=== PATIENT | female | born 1930 | race Caucasian/White ===

== ENCOUNTER 2020-12-14 07:10 | Emergency (ER) | payer MEDICARE ==
[~2020-12-14] VITALS: Ht 147.3 cm; Wt 63.6 kg
[2020-12-14 07:27] VITALS: BP 180/97
--- NOTE | 2020-12-14 07:46 | ED.ADGEN ---
Past Medical History Past Medical History: Anemia, GERD, Hypertension Additional Past Medical Histor: neuropathy Past Surgical History: Other Additional Past Surgical Histo: knee surgery Smoking Status: Never Smoker Alcohol Use: None General Adult EDM: Chief Complaint: MECHANICAL FALL HPI: HPI: Patient is a 89 year old female coming in for head injury. Patient states she has a history of neuropathy from the waist down and was trying to get out of her recliner to get a drink when she says she slid down but did not fell forward and struck the side of a plastic trash can. Denies any loss of consciousness. Patient is anticoagulated on Xarelto. Has a scrape to the top of her nose and hematoma with abrasion to her right forehead. No other injuries. Patient states her tetanus is up-to-date and she otherwise has been feeling well. Review of Systems: Review of Systems: All other systems within normal limits except for as noted in the HPI Current Medications: Current Medications Medications (Trade) Dose Ordered Sig/Linda Start Time Stop Time Status Last Admin Dose Admin Neomycin/ Polymyxin/ Bacitracin (Triple Antibiotic Ointment) 1 pkt 1X ONCE 12/14/20 08:00 12/14/20 08:01 DC Allergies: Allergies: Allergies Coded Allergies Type Severity Reaction Last Updated Verified No Known Drug Allergies 12/14/20 No Physical Exam: PE: Constitutional: Well developed, well nourished, no acute distress, non-toxic appearance. [] HENT: Normocephalic, hematoma to right frontal forehead, no step-offs or crepitus, bilateral external ears normal, nose normal. [] Eyes: PERRLA, conjunctiva normal, no discharge. [] Neck: No rigidity, supple, no stridor. [] Cardiovascular: Regular rate and rhythm, brisk cap refill [] Lungs & Thorax: Non labored symmetric respirations, no tachypnea or respiratory distress [] Abdomen: Soft, nondistended. Skin: Warm, dry, no erythema, no rash. [] Back: Unremarkable Extremities: No deformities, range of motion grossly intact, no lower extremity edema [] Neurologic: Alert and oriented X 3, no focal deficits noted. [] Psychologic: Affect normal, judgement normal, mood normal. [] Current Patient Data: Vital Signs: Vital Signs Date Time Temp Pulse Resp B/P (MAP) Pulse Ox O2 Delivery O2 Flow Rate FiO2 12/14/20 07:27 98.0 75 18 180/97 (124) 97 Room Air 98.0 EKG: EKG: [] Heart Score: C/O Chest Pain: No Risk Factors: Risk Factors: DM, Current or recent (<one month) smoker, HTN, HLP, family history of CAD, obesity. Risk Scores: Score 0 - 3: 2.5% MACE over next 6 weeks - Discharge Home Score 4 - 6: 20.3% MACE over next 6 weeks - Admit for Clinical Observation Score 7 - 10: 72.7% MACE over next 6 weeks - Early Invasive Strategies Radiology/Procedures: Radiology/Procedures: [facility] [address] [place] [address] IMAGING REPORT Signed PATIENT: EMI MART EACCOUNT: [id number] : 1930 LOCATION: ER AGE: 89 SEX: F EXAM STATUS: PRE ER ORD. PHYSICIAN: ZANE HOLLY MD REASON: fall, head injury, on xaralto PROCEDURE: CT HEAD WO CONTRAST INDICATION: Reason: fall, head injury, on xaralto / Spl. Instructions: / History: COMPARISON: None. TECHNIQUE: Axial CT images obtained through the head without intravenous contrast. One or more of the following individualized dose reduction techniques were utilized for this examination: 1. Automated exposure control; 2. Adjustment of the mA and/or kV according to patient size; 3. Use of iterative reconstruction technique. FINDINGS: No intracranial hemorrhage. No midline shift. Basal cisterns patents. Ventricles and sulci are globally prominent. No acute osseous abnormality. Scattered foci of low attenuation within the white matter. IMPRESSION: 1. No acute intracranial hemorrhage. 2. Scattered regions of low attenuation within the white matter. Non-specific in nature but a common finding and frequently secondary to small vessel ischemic disease. 3. Prominence of ventricles and sulci which is frequently secondary to age related volume loss. 4. Frontal scalp cephalohematoma. Electronically signed by: Vaishnavi Mckeon MD (12/14/2020 8:26 AM) [id number] DICTATED and SIGNED BY: VAISHNAVI MCKEON MD DATE: 12/14/20 [id number] [] Course & Med Decision Making: Course & Med Decision Making Pertinent Labs and Imaging studies reviewed. (See chart for details) [] Dragon Disclaimer: Gisel Disclaimer: This electronic medical record was generated, in whole or in part, using a voice recognition dictation system. Departure Departure Impression: Primary Impression: Fall Additional Impression: Traumatic hematoma of forehead Disposition: HOME / SELF CARE / HOMELESS Condition: STABLE Patient Instructions: Hematoma Problem Qualifiers ZANE HOLLY MD Dec 14, 2020 07:46
[2020-12-14] MEDS ORDERED: NEOMY/BACITR/POLYMYXIN OINT PACKET. TP ONE (08:00)
--- NOTE | 2020-12-14 08:28 | RAD ---
INDICATION: Reason: fall, head injury, on xaralto / Spl. Instructions: / History: COMPARISON: None. TECHNIQUE: Axial CT images obtained through the head without intravenous contrast. One or more of the following individualized dose reduction techniques were utilized for this examinat ion: 1. Automated exposure control; 2. Adjustment of the mA and/or kV according to patient size; 3 . Use of iterative reconstruction technique. FINDINGS: No intracranial hemorrhage. No midline shift. Basal cisterns patents. Ventricles and sulci are globally prominent. No acute osseous abnormality. Scattered foci of low attenuation within the white matter. IMPRESSION: 1. No acute intracranial hemorrhage. 2. Scattered regions of low attenuation within the white matter. Non-specific in nature but a commo n finding and frequently secondary to small vessel ischemic disease. 3. Prominence of ventricles and sulci which is frequently secondary to age related volume loss. 4. Frontal scalp cephalohematoma. Electronically signed by: Gerardo Mckeon MD (12/14/2020 8:26 AM) [id number]
== END 2020-12-14 09:10 | disposition home or self-care (01) ==
LOC: ER 07:10
DX: S00.83XA Contusion of other part of head, initial encounter (principal); I10 Essential (primary) hypertension; K21.9 Gastro-esophageal reflux disease without esophagitis; W18.09XA Striking against other object with subsequent fall, initial encounter; Y93.89 Activity, other specified; Y92.89 Other specified places as the place of occurrence of the external cause; Y99.8 Other external cause status
CPT/HCPCS: 70450; 99284-25